=== PATIENT | male | born 1970 | race American Indian/Alaskan Native ===

== ENCOUNTER 2016-08-24 08:13 | Emergency (ER) | payer SELFPAY ==
--- NOTE | 2016-08-24 09:53 | XRay Report ---
ROUTINE CHEST, TWO VIEWS: HISTORY: Cough, fever, wheezing. The trachea, heart, mediastinal contour, lung godwin and bony thorax are unremarkable. IMPRESSION: Unremarkable chest x-ray.
--- NOTE | 2016-08-24 10:11 | Emergency Department Report ---
HPI - General Chief Complaint: Upper Respiratory Infection Time Seen by Provider: 08/24/16 09:25 - HPI HPI: The 6-year-old male presents today with cold symptoms 5 days. Positive for productive cough, body aches, left earache. Patient states that he works in a cold environment and his symptoms are worsened when he is at work. Patient takes Mucinex with temporary relief. Positive for subjective fever. Denies nausea, vomiting, chest pain, shortness of breath, abdominal pain. ED Past Medical Hx - Past Medical History Previous Medical History?: No - Surgical History Past Surgical History?: No - Social History Smoking Status: Current Every Day Smoker Substance Use Type: None - Medications Home Medications: Home Medications Medication Instructions Recorded Confirmed Last Taken Type Amoxicillin [Amoxicillin TAB] 875 mg PO BID #20 tablet 08/24/16 Unknown Rx Fluticasone [Flonase] 1 spray NS QDAY #1 bottle 08/24/16 Unknown Rx guaiFENesin/DEXTROMETHORPHAN 1 each PO Q12H #30 tbmp.12hr 08/24/16 Unknown Rx [Mucinex Dm ER 1,200-60 mg Tab] ED Review of Systems ROS: Stated complaint: FLU SYMPTOMS Other details as noted in HPI Constitutional: chills, fever Eyes: denies: eye pain ENT: ear pain, congestion. denies: throat pain Respiratory: cough. denies: shortness of breath, wheezing Cardiovascular: denies: chest pain, palpitations Endocrine: no symptoms reported Gastrointestinal: denies: abdominal pain, nausea, vomiting Skin: denies: rash Neurological: denies: headache, weakness Physical Exam - Physical Exam Vital Signs: Vital Signs 08/24/16 08:38 Temperature 98.5 F Pulse Rate 83 Respiratory 17 Rate Blood Pressure 142/98 [Right] O2 Sat by Pulse 99 Oximetry Physical Exam: GENERAL: The patient is well-developed and well-nourished. Patient is in NAD. HEAD: Normocephalic. Atraumatic. EYES: PERRL. EARS: Right external auditory canals and tympanic membranes clear. Positive for erythematous and bulging left tympanic membrane. NOSE: Normal nasal mucosa with minimal nasal discharge. THROAT: No erythema, swelling or exudates. NECK: Supple, nontender, without lymphadenopathy. CHEST/LUNGS: Positive for minimal wheezing over left lower lobe. HEART/CARDIOVASCULAR: Regular rate and rhythm. No murmurs, rubs or gallops. ABDOMEN: Abdomen is soft, nontender. No guarding or rebound tenderness. EXTREMITIES: Full range of motion. Peripheral pulses intact. Capillary refill less than 2 seconds. NEURO: Alert and oriented x 3. Normal gait. ED Course Vital Signs 08/24/16 08:38 Temperature 98.5 F Pulse Rate 83 Respiratory 17 Rate Blood Pressure 142/98 [Right] O2 Sat by Pulse 99 Oximetry ED Medical Decision Making - Lab Data Vital Signs 08/24/16 08:38 Temperature 98.5 F Pulse Rate 83 Respiratory 17 Rate Blood Pressure 142/98 [Right] O2 Sat by Pulse 99 Oximetry - Radiology Data Radiology results: report reviewed Chest x-ray: The trachea, heart, because he has to contour, lung godwin and bony thorax are unremarkable. - Medical Decision Making 46-year-old male presents today with cough and cold symptoms and left earache 5 days. His chest x-ray is within normal limits. Patient is in no acute distress at this time. He will be discharged home and is encouraged to follow up with a primary care provider. He will be sent home on amoxicillin, Flonase and Mucinex DM and is encouraged to return to the emergency room for any worsening symptoms. Critical care attestation.: If time is entered above; I have spent that time in minutes in the direct care of this critically ill patient, excluding procedure time. ED Disposition Clinical Impression: Otitis media Qualifiers: Otitis media type: serous Laterality: left Chronicity: acute Recurrence: not specified as recurrent Qualified Code(s): H65.02 - Acute serous otitis media, left ear URI (upper respiratory infection) Qualifiers: URI type: unspecified URI Qualified Code(s): J06.9 - Acute upper respiratory infection, unspecified Disposition: DISCHARGED TO HOME OR SELFCARE Is pt being admited?: No Does the pt Need Aspirin: No Condition: Stable Instructions: Otitis Media (ED), Upper Respiratory Infection (ED) Additional Instructions: Follow-up with primary care provider. Return to the emergency department if symptoms worsen. Prescriptions: Amoxicillin [Amoxicillin TAB] 875 mg PO BID #20 tablet Fluticasone [Flonase] 1 spray NS QDAY #1 bottle guaiFENesin/DEXTROMETHORPHAN [Mucinex Dm ER 1,200-60 mg Tab] 1 each PO Q12H #30 tbmp.12hr Referrals: PRIMARY CARE, [Primary Care Provider] - 3-5 Days [facility] [Outside] - 3-5 Days Forms: Work/School Release Form(ED) Time of Disposition: 10:11
[2016-08-24 10:25] VITALS: BP 139/95
== END 2016-08-24 10:23 | disposition home or self-care (01) ==
LOC: ED 08:13
DX: J06.9 Acute upper respiratory infection, unspecified (principal); H65.02 Acute serous otitis media, left ear; F17.200 Nicotine dependence, unspecified, uncomplicated
CPT/HCPCS: 71020

== ENCOUNTER 2017-08-27 21:17 | Emergency (ER) | payer OTHER ==
[2017-08-27] MEDS ORDERED: MOTRIN PO ONE (21:39)
--- NOTE | 2017-08-27 22:18 | XRay Report ---
FINAL REPORT EXAM: XR SPINE LUMBOSACRAL 2-3V HISTORY: lower back pain COMPARISON: None available. FINDINGS: Three views of the lumbar spine obtained. Lumbar vertebral body heights are preserved. There are 6 lumbar type vertebral bodies. Probable lumbarization of S1 vertebral body. Disc remnant at the S1-S2 level. Questionable pars defects at the S1 level. No spondylolisthesis. Mild facet changes L5-S1 and S1-S2 levels. IMPRESSION: Lumbar vertebral body heights are preserved. Probable lumbarization of S1 vertebral body. Mild facet changes lower lumbar spine. Questionable pars defects at the S1 level versus artifact. No associated listhesis.
[2017-08-28 00:40] LABS: Bilirubin,Urine NEG (Negative); Blood,Urine NEG (Negative); Color,Urine Yellow (Yellow); Mucus,Urine 1+ /HPF; Nitrite,Urine NEG (Negative); Protein,Urine <15 mg/dL mg/dL (Negative); Urobilinogen,Urine < 2.0 mg/dL (<2.0)
[2017-08-28] MEDS ORDERED: NORCO 5/325 PO ONE (00:46)
--- NOTE | 2017-08-28 00:51 | Emergency Department Report ---
HPI - General Chief Complaint: Back Pain/Injury Time Seen by Provider: 08/28/17 00:37 - HPI HPI: Rosen 7 The patient is a 47-year-old male presenting with a chief complaint of back pain. The patient states at 04:00 this morning right before getting off work and lifted a heavy box (100 pounds) in an improper manner as he did not lift with his legs. The patient states he felt a sharp pain run across his back immediately. The patient states he then walked around the pain began to subside. The patient went home from work and went to sleep and when he awakened the pain hasn't returned and prevented him from going to work. Patient denies bowel or bladder incontinence. Patient denies paresthesia. The patient gets his pain score of 6-7/10. Location: Back Duration: [See above] Quality: Sharp Severity: 6-7/10 Modifying factors: [see above] Context: [see above] Mode of transportation: [not driving] ED Past Medical Hx - Past Medical History Previous Medical History?: No - Surgical History Past Surgical History?: No - Family History Family history: no significant - Social History Smoking Status: Current Every Day Smoker (1/2 pack per day) Substance Use Type: None (denies IVDA), Marijuana - Medications Home Medications: Home Medications Medication Instructions Recorded Confirmed Last Taken Type Amoxicillin [Amoxicillin TAB] 875 mg PO BID #20 tablet 08/24/16 Unknown Rx Fluticasone [Flonase] 1 spray NS QDAY #1 bottle 08/24/16 Unknown Rx guaiFENesin/DEXTROMETHORPHAN 1 each PO Q12H #30 tbmp.12hr 08/24/16 Unknown Rx [Mucinex Dm ER 1,200-60 mg Tab] Cyclobenzaprine [Flexeril] 10 mg PO TID PRN #14 tablet 08/28/17 Unknown Rx HYDROcodone/APAP 5-325 [[place] 1 - 2 each PO Q6HR PRN #14 tablet 08/28/17 Unknown Rx 5/325] Ibuprofen [Motrin] 800 mg PO Q8HR PRN #20 tablet 08/28/17 Unknown Rx ED Review of Systems ROS: Stated complaint: BACK PAIN Other details as noted in HPI Musculoskeletal: back pain Neurological: denies: paresthesias Physical Exam - Physical Exam Vital Signs: Vital Signs 08/27/17 21:35 Temperature 98.2 F Pulse Rate 95 H Respiratory 16 Rate Blood Pressure 157/98 O2 Sat by Pulse 100 Oximetry Physical Exam: GENERAL: The patient is well-developed well-nourished male lying on stretcher not appearing to be in acute distress. [] HEENT: Normocephalic. Atraumatic. Extraocular motions are intact. Patient has moist mucous membranes. NECK: Supple. Trachea midline CHEST/LUNGS: There is no respiratory distress noted. HEART/CARDIOVASCULAR: Regular. There is no tachycardia. There is no gallop rub or murmur. ABDOMEN: Abdomen is soft, nontender. Patient has normal bowel sounds. There is no abdominal distention. SKIN: There is no rash. There is no edema. There is no diaphoresis. NEURO: The patient is awake, alert, and oriented. The patient is cooperative. The patient has normal speech MUSCULOSKELETAL: There is lumbar axial tenderness to palpation but no step- offs. There is no evidence of acute injury. ED Course Vital Signs 08/27/17 21:35 Temperature 98.2 F Pulse Rate 95 H Respiratory 16 Rate Blood Pressure 157/98 O2 Sat by Pulse 100 Oximetry ED Medical Decision Making - Radiology Data Radiology results: report reviewed (lumbar spine x-ray), image reviewed (lumbar spine x-ray) interpreted by me: Lumbar spine x-ray-no acute fracture FINAL REPORT EXAM: XR SPINE LUMBOSACRAL 2-3V HISTORY: lower back pain COMPARISON: None available. FINDINGS: Three views of the lumbar spine obtained. Lumbar vertebral body heights are preserved. There are 6 lumbar type vertebral bodies. Probable lumbarization of S1 vertebral body. Disc remnant at the S1-S2 level. Questionable pars defects at the S1 level. No spondylolisthesis. Mild facet changes L5-S1 and S1-S2 levels. IMPRESSION: Lumbar vertebral body heights are preserved. Probable lumbarization of S1 vertebral body. Mild facet changes lower lumbar spine. Questionable pars defects at the S1 level versus artifact. No associated listhesis. Transcribed By: LMA Dictated By: LEON VYAS MD Electronically Authenticated By: LEON VYAS MD Signed Date/Time: 08/27/171814 DD/ 14 TD/TT: 08/27/171814 - Differential Diagnosis lumbar strain, lumbar disc herniation, pathologic fracture Critical care attestation.: If time is entered above; I have spent that time in minutes in the direct care of this critically ill patient, excluding procedure time. ED Disposition Clinical Impression: Acute lumbar myofascial strain, Acute back pain Disposition: TO HOME OR SELFCARE Is pt being admited?: No Does the pt Need Aspirin: No Condition: Stable Instructions: Muscle Strain (ED) Additional Instructions: Return to the emergency department immediately should you develop numbness in her legs, inability to control your bowels or bladder, worsening symptoms, fever , inability to tolerate food or liquid or any other concerns. Prescriptions: Cyclobenzaprine [Flexeril] 10 mg PO TID PRN #14 tablet PRN Reason: Muscle Spasm HYDROcodone/APAP 5-325 [[place] 5/325] 1 - 2 each PO Q6HR PRN #14 tablet PRN Reason: Pain Ibuprofen [Motrin] 800 mg PO Q8HR PRN #20 tablet PRN Reason: Pain Referrals: SUJATA COLINDRES MD [Staff Physician] - 3-5 Days (Dr. Colindres is an orthopedic surgeon. Please follow up with him for further evaluation) Time of Disposition: 00:54
[2017-08-28 01:13] VITALS: BP 150/98
== END 2017-08-28 01:09 | disposition home or self-care (01) ==
LOC: ED 21:17
DX: S39.012A Strain of muscle, fascia and tendon of lower back, initial encounter (principal); X50.0XXA Overexertion from strenuous movement or load, initial encounter; X50.9XXA Other and unspecified overexertion or strenuous movements or postures, initial encounter; Y93.89 Activity, other specified; Y92.89 Other specified places as the place of occurrence of the external cause; Y99.8 Other external cause status
CPT/HCPCS: 72100; 81001; 99284

== ENCOUNTER 2017-09-10 23:25 | Emergency (ER) | payer OTHER ==
[2017-09-10 23:40] VITALS: BP 123/79
--- NOTE | 2017-09-11 00:35 | Emergency Department Report ---
ED Back Pain/Injury HPI - General Chief Complaint: Back Pain/Injury Stated Complaint: FALL Time Seen by Provider: 09/11/17 00:07 Source: patient Limitations: No Limitations - History of Present Illness Initial Comments: Pt c/o low back pain after fall in bathtub this evening. Reports pain is 7 out of 10 to his lower back. Denies any nausea or vomiting. Denies any radiation of pain to extremities. Denies any abdominal pain. Denies any numbness or tingling to extremities. Denies any loss of bowel or bladder control. Denies any fever or chills. Denies any urinary burning frequency or urgency. MD Complaint: back pain, back injury -: This evening Similar Symptoms Previously: No Place: home Radiation: none Severity: severe Severity scale (0 -10): 7 Quality: aching Consistency: constant Improves With: immobilization Worsens With: movement, walking Context: fall Associated Symptoms: denies: confusion, weakness, chest pain, numbness, difficulty walking, cough, difficulty urinating, diaphoresis, incontinence, fever/chills, constipation, headaches, abdominal pain, loss of appetite, malaise , nausea/vomiting, rash, seizure, shortness of breath, syncope Treatments Prior to Arrival: other (none) - Related Data Previous Rx's Medication Instructions Recorded Last Taken Type Amoxicillin [Amoxicillin TAB] 875 mg PO BID #20 tablet 08/24/16 Unknown Rx Fluticasone [Flonase] 1 spray NS QDAY #1 bottle 08/24/16 Unknown Rx guaiFENesin/DEXTROMETHORPHAN 1 each PO Q12H #30 tbmp.12hr 08/24/16 Unknown Rx [Mucinex Dm ER 1,200-60 mg Tab] Cyclobenzaprine [Flexeril] 10 mg PO TID PRN #14 tablet 08/28/17 Unknown Rx HYDROcodone/APAP 5-325 [[place] 1 - 2 each PO Q6HR PRN #14 tablet 08/28/17 Unknown Rx 5/325] Ibuprofen [Motrin 800 MG tab] 800 mg PO Q8HR PRN #15 tablet 09/11/17 Unknown Rx Allergies Allergy/AdvReac Type Severity Reaction Status Date / Time No Known Allergies Allergy Unverified 08/24/16 08:38 ED Review of Systems ROS: Stated complaint: FALL Other details as noted in HPI Comment: All other systems reviewed and negative Constitutional: no symptoms reported Respiratory: no symptoms reported Cardiovascular: denies: chest pain, palpitations, edema, syncope Gastrointestinal: denies: abdominal pain, nausea, vomiting, diarrhea, constipation Musculoskeletal: back pain. denies: joint swelling, arthralgia Skin: denies: rash Neurological: denies: headache, weakness, numbness, paresthesias, confusion, abnormal gait, vertigo ED Past Medical Hx - Past Medical History Previous Medical History?: No - Surgical History Past Surgical History?: No - Family History Family history: no significant - Social History Smoking Status: Current Every Day Smoker Substance Use Type: None - Medications Home Medications: Home Medications Medication Instructions Recorded Confirmed Last Taken Type Amoxicillin [Amoxicillin TAB] 875 mg PO BID #20 tablet 08/24/16 Unknown Rx Fluticasone [Flonase] 1 spray NS QDAY #1 bottle 08/24/16 Unknown Rx guaiFENesin/DEXTROMETHORPHAN 1 each PO Q12H #30 tbmp.12hr 08/24/16 Unknown Rx [Mucinex Dm ER 1,200-60 mg Tab] Cyclobenzaprine [Flexeril] 10 mg PO TID PRN #14 tablet 08/28/17 Unknown Rx HYDROcodone/APAP 5-325 [[place] 1 - 2 each PO Q6HR PRN #14 tablet 08/28/17 Unknown Rx 5/325] Ibuprofen [Motrin 800 MG tab] 800 mg PO Q8HR PRN #15 tablet 09/11/17 Unknown Rx ED Physical Exam - General Limitations: No Limitations General appearance: alert, in no apparent distress - Head Head exam: Present: atraumatic, normocephalic, normal inspection, other (normal exam) - Eye Eye exam: Present: normal appearance, PERRL, EOMI Pupils: Present: normal accommodation - ENT ENT exam: Present: normal exam, normal orophraynx - Neck Neck exam: Present: normal inspection, full ROM, other (no C-spine tenderness). Absent: tenderness, meningismus, lymphadenopathy, thyromegaly - Respiratory Respiratory exam: Present: normal lung sounds bilaterally. Absent: respiratory distress, chest wall tenderness - Cardiovascular Cardiovascular Exam: Present: regular rate, normal rhythm, normal heart sounds. Absent: systolic murmur, diastolic murmur - GI/Abdominal GI/Abdominal exam: Present: soft, normal bowel sounds. Absent: distended, tenderness, guarding, rebound, rigid, organomegaly, mass, bruit, pulsatile mass , hernia - Extremities Exam Extremities exam: Present: normal inspection, full ROM, normal capillary refill , other (no clubbing, cyanosis or edema to extremities. No neurovascular compromise. +2 pulses to all extremities). Absent: tenderness, pedal edema, joint swelling, calf tenderness - Back Exam Back exam: Present: normal inspection, full ROM, tenderness, vertebral tenderness (positive lumbar vertebral spine tenderness), other (patient able to ambulate.). Absent: CVA tenderness (R), CVA tenderness (L), muscle spasm, paraspinal tenderness, rash noted - Expanded Back Exam Expanded Back exam: Absent: saddle anesthesia Back exam: Negative Straight Leg Raising: Left, Right - Neurological Exam Neurological exam: Present: alert, oriented X3, normal gait, reflexes normal. Absent: motor sensory deficit - Expanded Neurological Exam Expanded Neurological exam: Absent: innattentive, memory loss-remote event, memory loss- recent event, ataxia, receptive aphasia, expressive aphasia, total aphasia, tremor, protecting the airway Patient oriented to: Present: person, place, time Speech: Present: fluid speech Cranial nerves: EOM's Intact: Normal, Gag Reflex: Normal, Tongue Deviation: Normal, Nystagmus: Normal, Facial Sensation: Normal Cerebellar function: Romberg: Normal Upper motor neuron: Pronator Drift: Normal, Sensory Extinction: Normal Sensory exam: Upper Extremity Light Touch: Normal, Upper Extremity Temperature: Normal, UE 2 Point Discrimination: Normal, Lower Extremity Light Touch: Normal, Lower Extremity Temperature: Normal, LE 2 Point Discrimination: Normal Motor strength exam: RUE: 5, LUE: 5, RLE: 5, LLE: 5 DTR: bicep (R): 2+, bicep (L): 2+, tricep (R): 2+, tricep (L): 2+, knee (R): 2+ , knee (L): 2+, ankle (R): 2+, ankle (L): 2+ Best Eye Response ([place]): (4) open spontaneously Best Motor Response ([place]): (6) obeys commands Best Verbal Response ([place]): (5) oriented [place] Total: 15 - Psychiatric Psychiatric exam: Present: normal affect, normal mood - Skin Skin exam: Present: warm, dry, intact, normal color. Absent: rash ED Course Vital Signs 09/10/17 23:38 Temperature 97.4 F L Pulse Rate 68 Respiratory 17 Rate Blood Pressure 123/79 O2 Sat by Pulse 99 Oximetry - Reevaluation(s) Reevaluation #1: 09/11/17 02:31 Given Motrin 800 mg emergency room which relieved his back pain. ED Medical Decision Making - Radiology Data Radiology results: report reviewed X-ray of lumbar spine reveal no acute subluxation or fracture. Critical care attestation.: If time is entered above; I have spent that time in minutes in the direct care of this critically ill patient, excluding procedure time. ED Disposition Clinical Impression: Pain in lower back Qualifiers: Chronicity: acute Back pain laterality: midline Sciatica presence: without sciatica Qualified Code(s): M54.5 - Low back pain Fall, accidental Qualifiers: Encounter type: initial encounter Qualified Code(s): W19.XXXA - Unspecified fall, initial encounter Disposition: TO HOME OR SELFCARE Is pt being admited?: No Does the pt Need Aspirin: No Condition: Stable Instructions: Acute Low Back Pain (ED), Fall Prevention (ED) Additional Instructions: Please take Motrin as prescribed for lower back pain Follow[facility]up with [facility] for primary care in 2-3 days Follow up with orthopedic doctor if you continue to have back pain. Prescriptions: Ibuprofen [Motrin 800 MG tab] 800 mg PO Q8HR PRN #15 tablet PRN Reason: Pain Referrals: [facility] [Outside] - 2-3 Days SUJATA CLOUD MD [Staff Physician] - 2-3 Days Forms: Work/School Release Form(ED)
[2017-09-11] MEDS ORDERED: MOTRIN PO ONE (00:36)
--- NOTE | 2017-09-11 00:59 | XRay Report ---
FINAL REPORT PROCEDURE: XR SPINE LUMBOSACRAL 2-3V TECHNIQUE: Lumbar spine radiographs, including AP, lateral, bilateral oblique, flexion, and extension views. CPT 61125 HISTORY: Lower back pain post fall COMPARISON: No prior studies are available for comparison. FINDINGS: Alignment in neutral position: Normal . Vertebral body movement with flexion and extension: Physiologic . Vertebral body heights/Disk spaces: Normal . Fracture(s): None . Facets: Normal . Bone mineralization: Normal . IMPRESSION: Thomas Examination.
== END 2017-09-11 02:40 | disposition home or self-care (01) ==
LOC: ED 23:25
DX: M54.5 Low back pain (principal); F17.200 Nicotine dependence, unspecified, uncomplicated; W18.2XXA Fall in (into) shower or empty bathtub, initial encounter; Y93.89 Activity, other specified; Y99.8 Other external cause status; Y92.009 Unspecified place in unspecified non-institutional (private) residence as the place of occurrence of the external cause
CPT/HCPCS: 72100; 99283

== ENCOUNTER 2017-09-24 02:05 | Emergency (ER) | payer OTHER ==
[2017-09-24 02:19] VITALS: BP 141/95
[2017-09-24] MEDS ORDERED: TYLENOL PO ONE (05:14)
[2017-09-24] MEDS ORDERED: FLEXERIL PO ONE (05:14)
--- NOTE | 2017-09-24 05:18 | Emergency Department Report ---
ED Back Pain/Injury HPI - General Chief Complaint: Back Pain/Injury Stated Complaint: BACK PAIN Time Seen by Provider: 09/24/17 04:41 Source: patient Limitations: No Limitations - History of Present Illness Initial Comments: 47-year-old male past medical history chronic back pain presents with acute on chronic back pain. Patient states he was moving heavy furniture at home and may have strained his back. Denies any direct trauma. Patient has had multiple ED visits for lower back pain. Patient is awake alert and oriented 3. Denies any saddle paresthesias and bladder or bowel incontinence. Patient is awake alert and oriented 3 and ambulatory without assistance. Denies any dysuria or hematuria nausea or vomiting. Denies any lower extremity paresthesias. States he has had ongoing back pain for more than one month but this episode has gotten slightly more intense over the last 3 days Complaint: back pain Onset/Timin -: month(s) Place: home Severity: moderate Quality: aching Consistency: constant Improves With: none Worsens With: none - Related Data Previous Rx's Medication Instructions Recorded Last Taken Type Amoxicillin [Amoxicillin TAB] 875 mg PO BID #20 tablet 08/24/16 Unknown Rx Fluticasone [Flonase] 1 spray NS QDAY #1 bottle 08/24/16 Unknown Rx guaiFENesin/DEXTROMETHORPHAN 1 each PO Q12H #30 tbmp.12hr 08/24/16 Unknown Rx [Mucinex Dm ER 1,200-60 mg Tab] Cyclobenzaprine [Flexeril] 10 mg PO TID PRN #14 tablet 08/28/17 Unknown Rx HYDROcodone/APAP 5-325 [[place] 1 - 2 each PO Q6HR PRN #14 tablet 08/28/17 Unknown Rx 5/325] Ibuprofen [Motrin 800 MG tab] 800 mg PO Q8HR PRN #15 tablet 09/11/17 Unknown Rx Cyclobenzaprine [Flexeril 10 MG 10 mg PO ONCE PRN #10 tablet 09/24/17 Unknown Rx TAB] Naproxen 500 mg PO BID PRN #20 tablet 09/24/17 Unknown Rx Allergies Allergy/AdvReac Type Severity Reaction Status Date / Time No Known Allergies Allergy Unverified 08/24/16 08:38 ED Review of Systems ROS: Stated complaint: BACK PAIN Other details as noted in HPI Constitutional: denies: chills, fever Eyes: denies: eye pain, eye discharge, vision change ENT: denies: ear pain, throat pain Respiratory: denies: cough, shortness of breath, wheezing Cardiovascular: denies: chest pain, palpitations Endocrine: no symptoms reported Gastrointestinal: denies: abdominal pain, nausea, diarrhea Genitourinary: denies: urgency, dysuria Musculoskeletal: back pain. denies: joint swelling, arthralgia Skin: denies: rash, lesions Neurological: denies: headache, weakness, paresthesias Psychiatric: denies: anxiety, depression Hematological/Lymphatic: denies: easy bleeding, easy bruising ED Past Medical Hx - Past Medical History Previous Medical History?: No - Surgical History Past Surgical History?: No - Social History Smoking Status: Current Every Day Smoker Substance Use Type: Alcohol - Medications Home Medications: Home Medications Medication Instructions Recorded Confirmed Last Taken Type Amoxicillin [Amoxicillin TAB] 875 mg PO BID #20 tablet 08/24/16 Unknown Rx Fluticasone [Flonase] 1 spray NS QDAY #1 bottle 08/24/16 Unknown Rx guaiFENesin/DEXTROMETHORPHAN 1 each PO Q12H #30 tbmp.12hr 08/24/16 Unknown Rx [Mucinex Dm ER 1,200-60 mg Tab] Cyclobenzaprine [Flexeril] 10 mg PO TID PRN #14 tablet 08/28/17 Unknown Rx HYDROcodone/APAP 5-325 [[place] 1 - 2 each PO Q6HR PRN #14 tablet 08/28/17 Unknown Rx 5/325] Ibuprofen [Motrin 800 MG tab] 800 mg PO Q8HR PRN #15 tablet 09/11/17 Unknown Rx Cyclobenzaprine [Flexeril 10 MG 10 mg PO ONCE PRN #10 tablet 09/24/17 Unknown Rx TAB] Naproxen 500 mg PO BID PRN #20 tablet 09/24/17 Unknown Rx ED Physical Exam - General Limitations: No Limitations General appearance: alert, in no apparent distress - Head Head exam: Present: atraumatic, normocephalic - Eye Eye exam: Present: normal appearance, PERRL, EOMI - ENT ENT exam: Present: mucous membranes moist - Neck Neck exam: Present: normal inspection - Respiratory Respiratory exam: Present: normal lung sounds bilaterally. Absent: respiratory distress - Cardiovascular Cardiovascular Exam: Present: regular rate, normal rhythm. Absent: systolic murmur, diastolic murmur, rubs, gallop - GI/Abdominal GI/Abdominal exam: Present: soft (abdomen soft and nontender nondistended), normal bowel sounds - Rectal Rectal exam: Present: deferred - Extremities Exam Extremities exam: Present: normal inspection - Back Exam Back exam: Present: normal inspection - Neurological Exam Neurological exam: Present: alert, oriented X3, CN II-XII intact, normal gait - Psychiatric Psychiatric exam: Present: normal affect, normal mood - Skin Skin exam: Present: warm, dry, intact, normal color. Absent: rash ED Course Vital Signs 09/24/17 02:14 Temperature 97.3 F L Pulse Rate 69 Respiratory 18 Rate Blood Pressure 141/95 O2 Sat by Pulse 100 Oximetry ED Medical Decision Making - Medical Decision Making A/P: Acute on chronic lower back pain 1-patient has no clinical history or physical exam findings suggestive of acute cauda equina or spinal cord impingement.Cranial nerves 2, 3, 4, 5, 6, 7, 8,10, 11, 12 intact on clinical exam, patient is fully lucid awake alert and oriented 3 conversant. Denies any upper or lower extremity paresthesias and has 5/5 strength in bilateral upper and lower extremities on clinical exam. 2-approx when necessary, Tylenol when necessary and short course Flexeril 3-will not give patient narcotics as he has had more than 1 narcotic prescription within the last month for back pain. No acute trauma noted by the patient. 4-follow-up with primary care and orthopedics Critical care attestation.: If time is entered above; I have spent that time in minutes in the direct care of this critically ill patient, excluding procedure time. ED Disposition Clinical Impression: Back pain Qualifiers: Back pain location: low back pain Chronicity: acute Back pain laterality: bilateral Sciatica presence: without sciatica Qualified Code(s): M54.5 - Low back pain Disposition: TO HOME OR SELFCARE Is pt being admited?: No Does the pt Need Aspirin: No Condition: Stable Instructions: Acute Low Back Pain (ED), Back Pain (ED), Chronic Back Pain (ED) Prescriptions: Cyclobenzaprine [Flexeril 10 MG TAB] 10 mg PO ONCE PRN #10 tablet PRN Reason: Muscle Spasm Naproxen 500 mg PO BID PRN #20 tablet PRN Reason: Pain Referrals: [facility] [Provider Group] - 3-5 Days [place] [Outside] - 3-5 Days [facility] [Provider Group] - 3-5 Days Time of Disposition: 05:18
== END 2017-09-24 05:28 | disposition home or self-care (01) ==
LOC: ED 02:05
DX: M54.5 Low back pain (principal); F17.200 Nicotine dependence, unspecified, uncomplicated
CPT/HCPCS: 99282